=== PATIENT | female | born 1995 | race Caucasian/White ===

== ENCOUNTER 2019-05-09 15:18 | Outpatient (CLI) | payer OTHER ==
--- NOTE | 2019-05-09 16:39 | MRI ---
Hepatobiliary scan: 05/09/2019 HISTORY: Evaluate patency of the cystic duct TECHNIQUE: Following the intravenous administration of 4.8 mCi of technetium 99m labeled mebrofenin, anterior planar imaging is obtained over 59 minutes FINDINGS: There is prompt radiotracer activity within the liver on post injection imaging. Early bili odalis activity is seen by approximately 19 minutes. The gallbladder fills at approximately 50 minutes. IMPRESSION: The gallbladder fills at approximately 50 minutes, consistent with patency of the cystic duct. Results were discussed with Dr. Núñez at 4:35 PM 05/09/2019.
--- NOTE | 2019-05-10 07:40 | MRI ---
MRI LEFT KNEE: 05/09/2019 PROVIDED CLINICAL HISTORY: Left knee pain. COMPARISON: 03/25/2018 FINDINGS: The anterior cruciate ligament, posterior cruciate ligament, medial collateral ligament and lateral c ollateral ligamentous complex demonstrate an intact MR appearance, as does the extensor mechanism. The medial and lateral menisci demonstrate no evidence for tear. No focal articular cartilage defect is apparent. The amount of fluid within the knee joint appears physiologic. No focal concerning regional marrow or muscular signal abnormality is evident. IMPRESSION: No evidence for acute process. POS: OFF
== END 2019-05-09 15:19 | disposition home or self-care (01) ==
LOC: SCSMRI 15:18
PROVIDERS: ATTEND Family Medicine
DX: M23.92 Unspecified internal derangement of left knee (principal)

== ENCOUNTER 2019-11-03 08:31 | Outpatient (CLI) | payer OTHER ==
--- NOTE | 2019-11-03 09:24 | ULT ---
EXAM: US Abdominal CLINICAL HISTORY: Epigastric pain. Constipation. Right lower quadrant pain.. COMPARISON: None. FINDINGS: Pancreas: Visualized pancreatic parenchyma has a normal echotexture IVC: Visualized IVC has a normal caliber. Aorta: Visualized aorta has a normal caliber. Liver:Hepatic parenchyma has a normal echotexture. No hepatic masses or intrahepatic biliary dilatati on. The contour of the hepatic margin is maintained. Right hepatic lobe measures 17.1 cm Gallbladder: No sonographic evidence of cholelithiasis, gallbladder wall thickening or pericholecysti c fluid. Judge's sign:Negative CBD: Common bile duct diameter is 0.3 cm Portal vein: Patent. Appropriate directional flow. Right kidney: Normal cortical echotexture. No hydronephrosis. Right kidney measuring 2.6 x 10.5 x 5. 0 cm in length. Left kidney: Normal cortical echotexture. No hydronephrosis . Left kidney measuring 6.0 x 11.2 x 5.8 cm in length Spleen: Normal echotexture, measuring 10.5 cm IMPRESSION: Unremarkable exam.
== END 2019-11-03 08:32 | disposition home or self-care (01) ==
LOC: SCSULT 08:31
PROVIDERS: ATTEND Internal Medicine Gastroenterology
DX: K59.00 Constipation, unspecified (principal); R10.31 Right lower quadrant pain; R10.13 Epigastric pain
CPT/HCPCS: 93975